=== PATIENT | female | born 1985 | race Hispanic/Latino ===

== ENCOUNTER 2017-01-19 18:09 | Emergency (ER) | payer MEDICARE ==
[2017-01-19 18:21] VITALS: BP 142/86
--- NOTE | 2017-01-19 18:30 | Emergency Department Report ---
Chief Complaint: Upper Respiratory Infection Stated Complaint: SEVERE COUGH FLU LIKE SX Time Seen by Provider: 01/19/17 18:18 - HPI History of Present Illness: pt has multiple complaints uti/ foul smelling urine since May cough exposure to someone vomiting - ROS Review of Systems: + fever + cough + uti symptoms - Exam Vital Signs: Vital Signs 01/19/17 18:19 Temperature 98.8 F Pulse Rate 111 H Respiratory 16 Rate Blood Pressure 142/86 O2 Sat by Pulse 99 Oximetry Physical Exam: dry cough noted no wheezing MSE screening note: Focused history and physical exam performed. Due to findings the following was ordered: lab, xr ED Disposition for MSE Condition: Stable
[2017-01-19] MEDS ORDERED: DECADRON IM ONE (19:28)
[2017-01-19 19:49] LABS: Bilirubin,Urine NEG (Negative); Blood,Urine SM (Negative); Ketones,Urine TR mg/dL (Negative); Leukocyte Esterase,Urine SM (Negative); Mucus,Urine FEW /HPF; Nitrite,Urine NEG (Negative); Protein,Urine <15 mg/dL mg/dL (Negative); Urobilinogen,Urine < 2.0 mg/dL (<2.0)
--- NOTE | 2017-01-19 20:05 | Emergency Department Report ---
- General Chief Complaint: Upper Respiratory Infection Stated Complaint: SEVERE COUGH FLU LIKE SX Time Seen by Provider: 01/19/17 18:18 Source: patient Mode of arrival: Ambulatory Limitations: No Limitations - History of Present Illness Initial Comments: Patient is a 31-year-old female presents to ED with complaints of cough, congestion, shortness of breath for the past few days. Patient also reports that she had been seen at [facility] few days ago and was told she had a UTI. Although was not able to get the prescription for the antibiotics. States unsure if she still has UTI. MD Complaint: cough, nasal congestion Onset/Timin -: week(s) Severity: moderate Severity scale (0 -10): 0 Consistency: intermittent Improves With: nothing Worsens With: nothing Associated Symptoms: denies other symptoms, nasal congestion, cough, shortness of breath. denies: fever, chills, myalgias, diaphoresis, headache, sore throat , chest pain, nausea, vomiting, hoarseness, ear pain - Related Data Previous Rx's Medication Instructions Recorded Last Taken Type Benzonatate [Tessalon Perles] 100 mg PO Q8HR #21 capsule 01/19/17 Unknown Rx predniSONE [Deltasone] 20 mg PO QDAY #10 tab 01/19/17 Unknown Rx Allergies Allergy/AdvReac Type Severity Reaction Status Date / Time promethazine HCl AdvReac Vomiting Verified 01/19/17 18:23 [From Phenergan] Sulfa (Sulfonamide AdvReac Unknown Verified 01/19/17 18:23 Antibiotics) ED Review of Systems ROS: Stated complaint: SEVERE COUGH FLU LIKE SX Other details as noted in HPI Constitutional: denies: chills, fever Eyes: denies: eye pain, eye discharge, vision change ENT: denies: ear pain, throat pain Respiratory: cough, shortness of breath. denies: wheezing Cardiovascular: denies: chest pain, palpitations Genitourinary: dysuria, frequency. denies: urgency, hematuria, discharge, abnormal menses, dyspareunia Neurological: denies: headache, weakness, paresthesias Psychiatric: denies: anxiety, depression ED Past Medical Hx - Past Medical History Previous Medical History?: Yes Hx Diabetes: Yes Hx Psychiatric Treatment: Yes (bipolar) Hx Asthma: Yes Additional medical history: thyroid - Surgical History Past Surgical History?: Yes Additional Surgical History: head, tonsil - Social History Smoking Status: Never Smoker Substance Use Type: None - Medications Home Medications: Home Medications Medication Instructions Recorded Confirmed Last Taken Type Benzonatate [Tessalon Perles] 100 mg PO Q8HR #21 capsule 01/19/17 Unknown Rx predniSONE [Deltasone] 20 mg PO QDAY #10 tab 01/19/17 Unknown Rx ED Physical Exam - General Limitations: No Limitations General appearance: alert, in no apparent distress - Eye Eye exam: Present: normal appearance - ENT ENT exam: Present: mucous membranes moist - Respiratory Respiratory exam: Present: normal lung sounds bilaterally. Absent: respiratory distress, wheezes, rales, rhonchi, stridor, chest wall tenderness - Cardiovascular Cardiovascular Exam: Present: regular rate, normal rhythm. Absent: systolic murmur, diastolic murmur, rubs, gallop - Neurological Exam Neurological exam: Present: alert, oriented X3 - Psychiatric Psychiatric exam: Present: normal affect, normal mood ED Course Vital Signs 01/19/17 18:19 Temperature 98.8 F Pulse Rate 111 H Respiratory 16 Rate Blood Pressure 142/86 O2 Sat by Pulse 99 Oximetry ED Medical Decision Making - Medical Decision Making Patient is resting comfortably in the ED room. UA does not reveal any signs of UTI, +1 calcium oxalate noted. Spoke to patient regarding this and denies any flank pain or suprapubic pain in the ED. Chest x-ray does not reveal any acute findings. We'll give prednisone, Tessalon Perles. advised follow up with Urologist for persistent dysuria. No distress in the Ed room. Patient is reading a book. - Differential Diagnosis URI, bronchitis, pneumonia, sinusitis, postnasal, dysuria. Critical care attestation.: If time is entered above; I have spent that time in minutes in the direct care of this critically ill patient, excluding procedure time. ED Disposition Clinical Impression: URI, acute Disposition: DC-01 TO HOME OR SELFCARE Is pt being admited?: No Does the pt Need Aspirin: No Condition: Stable Instructions: Dysuria (ED), Upper Respiratory Infection (ED) Prescriptions: Benzonatate [Tessalon Perles] 100 mg PO Q8HR #21 capsule predniSONE [Deltasone] 20 mg PO QDAY #10 tab Time of Disposition: 20:10
--- NOTE | 2017-01-20 07:25 | XRay Report ---
ROUTINE CHEST, TWO VIEWS: HISTORY: Cough. The trachea, heart, mediastinal contour, lung hackett and bony thorax are unremarkable. IMPRESSION: Unremarkable chest x-ray.
== END 2017-01-19 20:15 | disposition home or self-care (01) ==
LOC: ED 18:09
DX: J06.9 Acute upper respiratory infection, unspecified (principal); E11.9 Type 2 diabetes mellitus without complications; F31.9 Bipolar disorder, unspecified; J45.909 Unspecified asthma, uncomplicated; Z88.2 Allergy status to sulfonamides; Z88.8 Allergy status to other drugs, medicaments and biological substances
CPT/HCPCS: 71020; 81001; 81025; 96372; 99283; J1100

== ENCOUNTER 2017-01-20 20:12 | Emergency (ER) | payer MEDICARE ==
[2017-01-20 21:23] LABS: Basophils % (Auto) 0.8 % (0.0-1.8); Eosinophils % (Auto) 1.3 % (0.0-4.3); Hematocrit 40.3 % (30.3-42.9); Hemoglobin 13.3 gm/dl (10.1-14.3); Mean Corpuscular HGB Conc 33 % (30-34); Mean Corpuscular Hemoglobin 27 pg (28-32); Mean Corpuscular Volume 82 fl (79-97); Platelet Count 381 K/mm3 (140-440); Red Blood Count 4.91 M/mm3 (3.65-5.03); Red Cell Distribution Width 14.4 % (13.2-15.2); White Blood Count 14.2 K/mm3 (4.5-11.0)
[2017-01-20 21:40] LABS: Anion Gap 25 mmol/L; Blood Urea Nitrogen 8 mg/dL (7-17); Calcium 9.8 mg/dL (8.4-10.2); Carbon Dioxide 19 mmol/L (22-30); Chloride 98.5 mmol/L (98-107); Glucose 166 mg/dL (65-100); Potassium 3.7 mmol/L (3.6-5.0); Sodium 139 mmol/L (137-145)
[2017-01-21] MEDS ORDERED: ZOFRAN IM ONE (06:22)
--- NOTE | 2017-01-21 06:29 | Emergency Department Report ---
- General Chief Complaint: Nausea/Vomiting/Diarrhea Stated Complaint: N/V Time Seen by Provider: 01/21/17 06:06 Source: patient Mode of arrival: Ambulatory Limitations: No Limitations - History of Present Illness Initial Comments: 31 years old female coming in with cough and vomiting for the last 4 days patient was seen here 2 days ago diagnosed with upper respiratory infection. Patient stated that she vomited 3 times since he left the ER. Denied any fever chest pain or abdominal pain. MD Complaint: cough, sore throat, rhinorrhea -: days(s) Associated Symptoms: cough, shortness of breath, nausea, vomiting - Related Data Previous Rx's Medication Instructions Recorded Last Taken Type Benzonatate [Tessalon Perles] 100 mg PO Q8HR #21 capsule 01/19/17 Unknown Rx predniSONE [Deltasone] 20 mg PO QDAY #10 tab 01/19/17 Unknown Rx Amoxicillin [Amoxicillin TAB] 875 mg PO BID #14 tablet 01/21/17 Unknown Rx Ondansetron [Zofran Odt] 4 mg PO Q8HR PRN #14 tab.rapdis 01/21/17 Unknown Rx Allergies Allergy/AdvReac Type Severity Reaction Status Date / Time promethazine HCl AdvReac Vomiting Verified 01/19/17 18:23 [From Phenergan] Sulfa (Sulfonamide AdvReac Unknown Verified 01/19/17 18:23 Antibiotics) ED Review of Systems ROS: Stated complaint: N/V Other details as noted in HPI Comment: All other systems reviewed and negative Constitutional: denies: chills, fever ENT: denies: throat pain Respiratory: cough. denies: shortness of breath Cardiovascular: denies: chest pain Gastrointestinal: nausea, vomiting. denies: abdominal pain, diarrhea ED Past Medical Hx - Past Medical History Previous Medical History?: Yes Hx Diabetes: Yes Hx Psychiatric Treatment: Yes (bipolar) Hx Asthma: Yes Additional medical history: thyroid - Surgical History Past Surgical History?: Yes Additional Surgical History: head, tonsil - Social History Smoking Status: Never Smoker Substance Use Type: None - Medications Home Medications: Home Medications Medication Instructions Recorded Confirmed Last Taken Type Benzonatate [Tessalon Perles] 100 mg PO Q8HR #21 capsule 01/19/17 Unknown Rx predniSONE [Deltasone] 20 mg PO QDAY #10 tab 01/19/17 Unknown Rx Amoxicillin [Amoxicillin TAB] 875 mg PO BID #14 tablet 01/21/17 Unknown Rx Ondansetron [Zofran Odt] 4 mg PO Q8HR PRN #14 tab.rapdis 01/21/17 Unknown Rx ED Physical Exam - General Limitations: No Limitations General appearance: alert - Eye Eye exam: Present: normal appearance - ENT ENT exam: Present: normal exam, normal orophraynx - Neck Neck exam: Present: normal inspection. Absent: tenderness, meningismus, full ROM - Respiratory Respiratory exam: Present: normal lung sounds bilaterally. Absent: respiratory distress, wheezes, rales, rhonchi, stridor, decreased breath sounds, prolonged expiratory - Cardiovascular Cardiovascular Exam: Present: regular rate, normal rhythm, normal heart sounds - GI/Abdominal GI/Abdominal exam: Present: soft. Absent: tenderness, guarding, rebound, rigid - Neurological Exam Neurological exam: Present: alert, oriented X3, CN II-XII intact - Skin Skin exam: Present: warm, normal color ED Course Vital Signs 01/20/17 01/21/17 01/21/17 20:56 01:13 05:32 Temperature 98.6 F 98.4 F Pulse Rate 101 H 112 H Respiratory 22 18 Rate Blood Pressure 139/95 145/88 O2 Sat by Pulse 95 97 96 Oximetry 01/21/17 01/21/17 01/21/17 05:36 05:40 05:45 Temperature Pulse Rate Respiratory Rate Blood Pressure 125/72 125/72 126/78 O2 Sat by Pulse 96 94 98 Oximetry 01/21/17 05:52 Temperature Pulse Rate Respiratory 20 Rate Blood Pressure O2 Sat by Pulse Oximetry - Reevaluation(s) Reevaluation #1: 01/21/17 07:26 Patient is admitted that she is feeling much better no nausea no vomiting will discharge with antibiotic to follow-up with her primary care physician. ED Medical Decision Making - Lab Data Result diagrams: 01/20/17 21:04 01/20/17 21:04 Critical care attestation.: If time is entered above; I have spent that time in minutes in the direct care of this critically ill patient, excluding procedure time. ED Disposition Clinical Impression: Acute bronchitis Disposition: DC-01 TO HOME OR SELFCARE Is pt being admited?: No Condition: Stable Instructions: Acute Bronchitis (ED) Referrals: PRIMARY CARE, [Primary Care Provider] - 3-5 Days
[2017-01-21 08:03] VITALS: BP 127/70
== END 2017-01-21 08:00 | disposition home or self-care (01) ==
LOC: ED 20:12
DX: J20.9 Acute bronchitis, unspecified (principal); E11.9 Type 2 diabetes mellitus without complications; F31.9 Bipolar disorder, unspecified; J45.909 Unspecified asthma, uncomplicated; Z88.2 Allergy status to sulfonamides
CPT/HCPCS: 36415; 80048; 85025; 96372; 99283; J2405

== ENCOUNTER 2017-01-23 01:53 | Emergency (ER) | payer MEDICARE ==
[2017-01-23 02:50] LABS: Hematocrit 36.8 % (30.3-42.9); Hemoglobin 12.1 gm/dl (10.1-14.3); Mean Corpuscular HGB Conc 33 % (30-34); Mean Corpuscular Hemoglobin 27 pg (28-32); Mean Corpuscular Volume 81 fl (79-97); Platelet Count 303 K/mm3 (140-440); Red Blood Count 4.52 M/mm3 (3.65-5.03); Red Cell Distribution Width 14.5 % (13.2-15.2); White Blood Count 10.8 K/mm3 (4.5-11.0)
[2017-01-23 03:05] LABS: Anion Gap 21 mmol/L; Blood Urea Nitrogen 4 mg/dL (7-17); Calcium 8.8 mg/dL (8.4-10.2); Carbon Dioxide 23 mmol/L (22-30); Chloride 95.4 mmol/L (98-107); Glucose 194 mg/dL (65-100); Potassium 3.3 mmol/L (3.6-5.0); Sodium 136 mmol/L (137-145)
--- NOTE | 2017-01-23 04:11 | XRay Report ---
FINAL REPORT EXAM: XR CHEST ROUTINE 2V HISTORY: Chest Congestion, Preg test ordered, Get Report Productive cough with yellow/green sputum x 1 week sore throat TECHNIQUE: PA and lateral chest radiographs PRIORS: None. FINDINGS: No focal consolidations are seen in the lungs and there are no pleural effusions.The cardiomediastinal silhouette is within normal limits for size and contour. No acute osseous abnormality is identified. IMPRESSION: 1. No definite radiographic evidence of acute cardiopulmonary disease. 2. No focal infiltrate is identified.
[2017-01-23] MEDS ORDERED: DUONEB *Not for PRN Use IH ONE (08:05)
[2017-01-23] MEDS ORDERED: TESSALON PERLES PO ONE (08:05)
[2017-01-23] MEDS ORDERED: POTASSIUM CHLORIDE PO ONE ×2 (08:13→09:00)
--- NOTE | 2017-01-23 08:18 | Emergency Department Report ---
ED General Adult HPI - General Chief complaint: Upper Respiratory Infection Stated complaint: REJI/COUGHING MUCUS Time Seen by Provider: 01/23/17 07:55 Source: patient Mode of arrival: Ambulatory Limitations: No Limitations - History of Present Illness Initial comments: PT c/o cough x 1 week. PT also c/o sore throat. PT has been seen here twice for similar symptoms. PT states she only filled 1 RX but does not know which one she is taking. PT states she has a hx of asthma and she is using her inhaler but she is still coughing. Complaint: cough -: Gradual, week(s) (one) Location: mouth (sore throat ) Severity scale (0 -10): 3 Quality: constant Consistency: constant Improves with: none Associated Symptoms: cough. denies: fever/chills, headaches, loss of appetite, nausea/vomiting Treatments Prior to Arrival: none - Related Data Previous Rx's Medication Instructions Recorded Last Taken Type Benzonatate [Tessalon Perles] 100 mg PO Q8HR #21 capsule 01/19/17 Unknown Rx predniSONE [Deltasone] 20 mg PO QDAY #10 tab 01/19/17 Unknown Rx Amoxicillin [Amoxicillin TAB] 875 mg PO BID #14 tablet 01/21/17 Unknown Rx Ondansetron [Zofran Odt] 4 mg PO Q8HR PRN #14 tab.rapdis 01/21/17 Unknown Rx Tobramycin 0.3% [Tobrex] 1 drop OD QID 7 Days 01/23/17 Unknown Rx Allergies Allergy/AdvReac Type Severity Reaction Status Date / Time ketorolac tromethamine Allergy Rash Verified 01/23/17 02:19 [From Toradol] misoprostol Allergy Rash Verified 01/23/17 02:19 promethazine HCl AdvReac Vomiting Verified 01/19/17 18:23 [From Phenergan] Sulfa (Sulfonamide AdvReac Unknown Verified 01/19/17 18:23 Antibiotics) ED Review of Systems ROS: Stated complaint: REJI/COUGHING MUCUS Other details as noted in HPI Comment: All other systems reviewed and negative Constitutional: denies: chills, fever Eyes: eye discharge (R). 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 denies: ear pain Respiratory: cough, wheezing. denies: shortness of breath Cardiovascular: denies: chest pain Gastrointestinal: denies: abdominal pain, nausea, vomiting Genitourinary: denies: abnormal menses Neurological: denies: headache ED Past Medical Hx - Past Medical History Previous Medical History?: Yes Hx Diabetes: Yes Hx Psychiatric Treatment: Yes (bipolar) Hx Asthma: Yes Additional medical history: thyroid - Surgical History Past Surgical History?: Yes Additional Surgical History: head, tonsil - Social History Smoking Status: Never Smoker Substance Use Type: Alcohol - Medications Home Medications: Home Medications Medication Instructions Recorded Confirmed Last Taken Type Benzonatate [Tessalon Perles] 100 mg PO Q8HR #21 capsule 01/19/17 Unknown Rx predniSONE [Deltasone] 20 mg PO QDAY #10 tab 01/19/17 Unknown Rx Amoxicillin [Amoxicillin TAB] 875 mg PO BID #14 tablet 01/21/17 Unknown Rx Ondansetron [Zofran Odt] 4 mg PO Q8HR PRN #14 tab.rapdis 01/21/17 Unknown Rx Tobramycin 0.3% [Tobrex] 1 drop OD QID 7 Days 01/23/17 Unknown Rx ED Physical Exam - General Limitations: No Limitations General appearance: alert, in no apparent distress - Head Head exam: Present: atraumatic, normocephalic, normal inspection - Eye Eye exam: Present: PERRL, EOMI, conjunctival injection (R ), other (Left eye - white pupil ). Absent: normal appearance - ENT ENT exam: Present: normal exam, normal orophraynx, mucous membranes moist, normal external ear exam - Neck Neck exam: Present: normal inspection, full ROM. Absent: tenderness, lymphadenopathy - Respiratory Respiratory exam: Present: normal lung sounds bilaterally, other (dry cough noted during exam ). Absent: respiratory distress, wheezes, rales, rhonchi, stridor, chest wall tenderness - Cardiovascular Cardiovascular Exam: Present: normal rhythm, tachycardia, normal heart sounds - Extremities Exam Extremities exam: Present: normal inspection, full ROM - Back Exam Back exam: Present: normal inspection, full ROM. Absent: tenderness, CVA tenderness (R), CVA tenderness (L), muscle spasm, paraspinal tenderness, vertebral tenderness - Neurological Exam Neurological exam: Present: alert, oriented X3 - Psychiatric Psychiatric exam: Present: normal affect, normal mood - Skin Skin exam: Present: warm, dry, intact, normal color ED Course Vital Signs 01/23/17 01/23/17 01/23/17 02:20 08:28 08:33 Temperature 98.9 F Pulse Rate 103 H Pulse Rate [ 113 H 115 H Posterior Bilateral Throughout] Respiratory 24 Rate Respiratory 18 18 Rate [Posterior Bilateral Throughout] Blood Pressure 104/67 [Right] O2 Sat by Pulse 94 Oximetry 01/23/17 10:30 Temperature 98.7 F Pulse Rate 96 H Pulse Rate [ Posterior Bilateral Throughout] Respiratory 20 Rate Respiratory Rate [Posterior Bilateral Throughout] Blood Pressure 110/62 [Right] O2 Sat by Pulse 97 Oximetry - Reevaluation(s) Reevaluation #1: 01/23/17 09:59 Pt's hypokalemia treated while in ED. PT states she is feeling better sp neb. - Pulse Oximetry Interpretation Digit-Finger Initial Pulse Oximetry Readin Actions Taken: none ED Medical Decision Making - Lab Data Result diagrams: 01/23/17 02:25 01/23/17 02:25 Lab Results 01/23/17 01/23/17 01/23/17 Range/Units 02:25 02:25 02:25 WBC 10.8 (4.5-11.0) K/mm3 RBC 4.52 (3.65-5.03) M/mm3 Hgb 12.1 (10.1-14.3) gm/dl Hct 36.8 (30.3-42.9) % MCV 81 (79-97) fl MCH 27 L (28-32) pg MCHC 33 (30-34) % RDW 14.5 (13.2-15.2) % Plt Count 303 (140-440) K/mm3 Lymph % (Auto) 19.9 (13.4-35.0) % Rogers % (Auto) 7.8 H (0.0-7.3) % Eos % (Auto) 2.0 (0.0-4.3) % Baso % (Auto) 1.0 (0.0-1.8) % Lymph # 2.1 (1.2-5.4) K/mm3 Rogers # 0.8 (0.0-0.8) K/mm3 Eos # 0.2 (0.0-0.4) K/mm3 Baso # 0.1 (0.0-0.1) K/mm3 Seg Neutrophils % 69.3 (40.0-70.0) % Seg Neutrophils # 7.5 (1.8-7.7) K/mm3 Sodium 136 L (137-145) mmol/L Potassium 3.3 L (3.6-5.0) mmol/L Chloride 95.4 L (98-107) mmol/L Carbon Dioxide 23 (22-30) mmol/L Anion Gap 21 mmol/L BUN 4 L (7-17) mg/dL Creatinine 0.4 L (0.7-1.2) mg/dL Estimated GFR > 60 ml/min BUN/Creatinine Ratio 10.00 % Glucose 194 H (65-100) mg/dL Calcium 8.8 (8.4-10.2) mg/dL Troponin T < 0.010 (0.00-0.029) ng/mL HCG, Qual Negative (Negative) - Radiology Data Radiology results: report reviewed CXR - nap - Differential Diagnosis pna, bronchitis, asthma, conjunctivitis Critical Care Time: No Critical care attestation.: If time is entered above; I have spent that time in minutes in the direct care of this critically ill patient, excluding procedure time. ED Disposition Clinical Impression: Hypokalemia, Cough Conjunctivitis, right eye Qualifiers: Conjunctivitis type: acute Acute conjunctivitis type: unspecified Qualified Code(s): H10.31 - Unspecified acute conjunctivitis, right eye Disposition: TO HOME OR SELFCARE Is pt being admited?: No Does the pt Need Aspirin: No Condition: Stable Instructions: Conjunctivitis (ED), Cold Symptoms (ED), Acute Cough (ED) Additional Instructions: Take your previous prescriptions as prescribed Continue using your inhaler as needed warm compresses to R eye at least 4 times a day good hand washing follow up with PCP in 3-5 days Prescriptions: Tobramycin 0.3% [Tobrex] 1 drop OD QID 7 Days Referrals: PRIMARY CAREMD [Primary Care Provider] - 3-5 Days BLESSING QUEEN MD [Staff Physician] - 3-5 Days [facility] [Outside] - 3-5 Days Time of Disposition: 10:02
[2017-01-23] MEDS ORDERED: DUONEB *Not for PRN Use IH NR (08:45)
[2017-01-23] MEDS ORDERED: TESSALON PERLES PO NR (09:00)
[2017-01-23] MEDS ORDERED: ZOFRAN ODT ONE (09:06)
[2017-01-23] MEDS ORDERED: ZOFRAN ODT PO ONE (09:06)
[2017-01-23 10:31] VITALS: BP 110/62
== END 2017-01-23 10:30 | disposition home or self-care (01) ==
LOC: ED 01:53
DX: H10.31 Unspecified acute conjunctivitis, right eye (principal); E87.6 Hypokalemia; E11.9 Type 2 diabetes mellitus without complications; J45.909 Unspecified asthma, uncomplicated
CPT/HCPCS: 36415; 71020; 80048; 84484; 84703; 85025; 87116; 87430; 94640; Q0162

== ENCOUNTER 2017-01-25 20:15 | Emergency (ER) | payer MEDICARE ==
[2017-01-26] MEDS ORDERED: ROBITUSSIN AC PO ONE (01:36)
[2017-01-26] MEDS ORDERED: ROBITUSSIN DM ONE (01:48)
[2017-01-26] MEDS ORDERED: ROBITUSSIN DM PO ONE ×2 (01:50→01:51)
[2017-01-26] MEDS ORDERED: PROVENTIL IH ONE (02:34)
[2017-01-26] MEDS ORDERED: REGLAN PO ONE (02:34)
--- NOTE | 2017-01-26 02:51 | Emergency Department Report ---
HPI - General Chief Complaint: Upper Respiratory Infection Time Seen by Provider: 01/26/17 02:33 - HPI HPI: Patient is a 31-year-old female presents to ED complaining of resolved coughing and some nausea after eating. Patient states she is coughing for the past couple weeks but nausea after eating began about a day ago. Patient states yesterday she had blueberry muffin and vomited shortly after that. Patient says she's been seen a couple times illness treated for an upper respiratory infection not long ago and is currently on antibiotics for about a year upper respiratory infection. She denies fever/abdominal pain/chest pains or shortness of breath ED Past Medical Hx - Past Medical History Previous Medical History?: Yes Hx Diabetes: Yes Hx Psychiatric Treatment: Yes (bipolar) Hx Asthma: Yes Additional medical history: thyroid - Surgical History Past Surgical History?: No Additional Surgical History: head, tonsil - Social History Smoking Status: Never Smoker Substance Use Type: Prescribed - Medications Home Medications: Home Medications Medication Instructions Recorded Confirmed Last Taken Type Benzonatate [Tessalon Perles] 100 mg PO Q8HR #21 capsule 01/19/17 Unknown Rx predniSONE [Deltasone] 20 mg PO QDAY #10 tab 01/19/17 Unknown Rx Amoxicillin [Amoxicillin TAB] 875 mg PO BID #14 tablet 01/21/17 Unknown Rx Tobramycin 0.3% [Tobrex] 1 drop OD QID 7 Days 01/23/17 Unknown Rx ALBUTEROL Inhaler [ProAir HFA 2 puff IH QID PRN #1 pump 01/26/17 Unknown Rx Inhaler] Acetamin/Codeine 120-12Mg/5 ml 5 ml PO TID PRN #80 ml 01/26/17 Unknown Rx [Tylenol/Codeine] Ondansetron [Zofran ODT TAB] 4 mg PO Q8HR PRN #14 tab.rapdis 01/26/17 Unknown Rx ED Review of Systems ROS: Stated complaint: EMESIS/COUGH Other details as noted in HPI Constitutional: denies: chills, fever Eyes: denies: eye pain, eye discharge, vision change ENT: denies: ear pain, throat pain Respiratory: denies: cough, shortness of breath, wheezing Cardiovascular: denies: chest pain, palpitations Endocrine: no symptoms reported Gastrointestinal: denies: abdominal pain, nausea, diarrhea Genitourinary: denies: urgency, dysuria, discharge Musculoskeletal: denies: back pain, joint swelling, arthralgia Skin: denies: rash, lesions Neurological: denies: headache, weakness, paresthesias Psychiatric: denies: anxiety, depression Hematological/Lymphatic: denies: easy bleeding, easy bruising Physical Exam - Physical Exam Vital Signs: Vital Signs 01/25/17 01/25/17 20:34 21:08 Temperature 98.6 F 98.6 F Pulse Rate 110 H 84 Respiratory 20 20 Rate Blood Pressure 132/79 Blood Pressure 128/85 [Left] O2 Sat by Pulse 92 98 Oximetry Physical Exam: GENERAL: Alert and oriented x3, no apparent distress, Normal Gait, atraumatic. HEAD: Head is normocephalic and a-traumatic. EYES: Extra ocular muscles are intact. Pupils are equal, round, and reactive to light and accommodation. EARS: symetrical, atraumatic, non tender, ear canal clear and moderate cerumen, tympanic membrance non inflamed. gross auditory nml bilaterally. NOSE: Nose symetrical, Nontender,Nares appeared normal. MOUTH:Mouth is well hydrated and without lesions. Tonsils nonerythematous or swollen, Uvula midline, Tongue not elevated. Mucous membranes are moist. Posterior pharynx clear, no exudate or lesions. Patent airways. NECK: Supple. Non edematous, No lymphadenopathy or thyromegaly. No C-spine tenderness LUNGS: Symetrical with respiration, No wheezing, no rales or crackles, CTAB. HEART: S1, S2 present, regular rate and rhythm without murmur, no rubs, no gallops. Non tender to palpation ABDOMEN: No organomegaly was noted,Positive bowel sounds, soft, and non- distended. . Nontender to palpation on all Quadrants, NO CVA tenderness. PSYCHIATRIC: Mood is congruent with affect, denies suicidal or homicidal ideations. SKIN: Warm and dry, No lesions, No ulceration or induration present. ED Course Vital Signs 01/25/17 01/25/17 20:34 21:08 Temperature 98.6 F 98.6 F Pulse Rate 110 H 84 Respiratory 20 20 Rate Blood Pressure 132/79 Blood Pressure 128/85 [Left] O2 Sat by Pulse 92 98 Oximetry ED Medical Decision Making - Medical Decision Making 31-year-old female presents with acute bronchitis ED course: Patient received respiratory treatment in ED, Reglan for nausea, Robitussin with codeine for cough and Patient actively coughing throughout ED stay Coughing reduced after a dose of Robitussin and breathing treatment. Patient was able to tolerate some applesauce in the ED Discussed patient is to follow up with GI doctor if nausea persists as well as primary care physician. Vital signs are normalized, patient is in no acute distress. Discussed the patient's symptoms worsen to return to the ED. Critical care attestation.: If time is entered above; I have spent that time in minutes in the direct care of this critically ill patient, excluding procedure time. ED Disposition Clinical Impression: Acute bronchitis Qualifiers: Bronchitis organism: unspecified organism Qualified Code(s): J20.9 - Acute bronchitis, unspecified Disposition: - TO HOME OR SELFCARE Is pt being admited?: No Does the pt Need Aspirin: No Condition: Stable Instructions: Acute Bronchitis (ED) Additional Instructions: Following instructions given and follow-up with primary care physician. Take your medication as prescribed along his symptoms worsen return to ED otherwise follow up with primary care Prescriptions: Acetamin/Codeine 120-12Mg/5 ml [Tylenol/Codeine] 5 ml PO TID PRN #80 ml PRN Reason: Pain ALBUTEROL Inhaler [ProAir HFA Inhaler] 2 puff IH QID PRN #1 pump PRN Reason: Cough Ondansetron [Zofran ODT TAB] 4 mg PO Q8HR PRN #14 tab.rapdis PRN Reason: Nausea And Vomiting Referrals: PRIMARY CARE,MD [Primary Care Provider] - 3-5 Days [facility] [Outside] - 3-5 Days [facility] [Outside] - 3-5 Days [facility] [Outside] - 3-5 Days Forms: Accompanied Note, Work/School Release Form(ED)
[2017-01-26 04:34] VITALS: BP 118/77
== END 2017-01-26 04:33 | disposition home or self-care (01) ==
LOC: ED 20:15
DX: J20.9 Acute bronchitis, unspecified (principal); E11.9 Type 2 diabetes mellitus without complications; J45.909 Unspecified asthma, uncomplicated
CPT/HCPCS: 94640; 99283

== ENCOUNTER 2017-01-27 22:14 | Emergency (ER) | payer MEDICARE ==
[2017-01-28 03:28] VITALS: BP 110/83
--- NOTE | 2017-01-28 03:33 | Emergency Department Report ---
HPI - General Chief Complaint: Earache Time Seen by Provider: 01/28/17 03:28 - HPI HPI: 41-year-old female presents to the ED complaining of right-sided ear pain was taken last for the past 2-3 days. Patient denies decreased hearing, fever, nausea, vomiting, trauma to the ear. ED Past Medical Hx - Past Medical History Previous Medical History?: Yes Hx Diabetes: Yes Hx Psychiatric Treatment: Yes (bipolar) Hx Asthma: Yes Additional medical history: thyroid. Obesity - Surgical History Past Surgical History?: Yes Additional Surgical History: head, tonsil - Social History Smoking Status: Never Smoker Substance Use Type: Prescribed - Medications Home Medications: Home Medications Medication Instructions Recorded Confirmed Last Taken Type Benzonatate [Tessalon Perles] 100 mg PO Q8HR #21 capsule 01/19/17 Unknown Rx predniSONE [Deltasone] 20 mg PO QDAY #10 tab 01/19/17 Unknown Rx Amoxicillin [Amoxicillin TAB] 875 mg PO BID #14 tablet 01/21/17 Unknown Rx Tobramycin 0.3% [Tobrex] 1 drop OD QID 7 Days 01/23/17 Unknown Rx ALBUTEROL Inhaler [ProAir HFA 2 puff IH QID PRN #1 pump 01/26/17 Unknown Rx Inhaler] Acetamin/Codeine 120-12Mg/5 ml 5 ml PO TID PRN #80 ml 01/26/17 Unknown Rx [Tylenol/Codeine] Ondansetron [Zofran ODT TAB] 4 mg PO Q8HR PRN #14 tab.rapdis 01/26/17 Unknown Rx Amoxicillin/K Clav Tab [Augmentin 1 tab PO Q12HR #14 tab 01/28/17 Unknown Rx 875 mg] Ibuprofen [Motrin] 800 mg PO Q8HR PRN #24 tablet 01/28/17 Unknown Rx Pseudoephedrine ER [Sudafed 12 Hr] 120 mg PO BID #30 tablet.er 01/28/17 Unknown Rx ED Review of Systems ROS: Stated complaint: RT EARACHE Other details as noted in HPI Constitutional: denies: chills, fever Eyes: denies: eye pain, eye discharge, vision change ENT: ear pain. denies: throat pain, dental pain, hearing loss, congestion Respiratory: denies: cough, shortness of breath, wheezing Cardiovascular: denies: chest pain, palpitations Endocrine: no symptoms reported Gastrointestinal: denies: abdominal pain, nausea, diarrhea Genitourinary: denies: urgency, dysuria, discharge Musculoskeletal: denies: back pain, joint swelling, arthralgia Skin: denies: rash, lesions Neurological: denies: headache, weakness, paresthesias Psychiatric: denies: anxiety, depression Hematological/Lymphatic: denies: easy bleeding, easy bruising Physical Exam - Physical Exam Vital Signs: Vital Signs 01/27/17 22:18 Temperature 99.4 F Pulse Rate 18 L Respiratory 18 Rate Blood Pressure 123/81 [Right] O2 Sat by Pulse 96 Oximetry Physical Exam: GENERAL: Alert and oriented x3, no apparent distress, Normal Gait, atraumatic. HEAD: Head is normocephalic and a-traumatic. EYES: Extra ocular muscles are intact. Pupils are equal, round, and reactive to light and accommodation. EARS: symetrical, atraumatic, non tender, ear canal clear and moderate cerumen, tympanic membrance non inflamed. Serous fluid behind tympanic membrane of the right, mild serous fluid on the left. gross auditory nml bilaterally. NOSE: Nose symetrical, Nontender,Nares appeared normal. MOUTH:Mouth is well hydrated and without lesions. Tonsils nonerythematous or swollen, Uvula midline, Tongue not elevated. Mucous membranes are moist. Posterior pharynx clear, no exudate or lesions. Patent airways. NECK: Supple. Non edematous, No lymphadenopathy or thyromegaly. No C-spine tenderness LUNGS: Symetrical with respiration, No wheezing, no rales or crackles, CTAB. HEART: S1, S2 present, regular rate and rhythm without murmur, no rubs, no gallops. Non tender to palpation SKIN: Warm and dry, No lesions, No ulceration or induration present. ED Course Vital Signs 01/27/17 22:18 Temperature 99.4 F Pulse Rate 18 L Respiratory 18 Rate Blood Pressure 123/81 [Right] O2 Sat by Pulse 96 Oximetry ED Medical Decision Making - Medical Decision Making 31-year-old female presents with sinusitis with the referring pain to the ears. Discussed the patient take medications prescribed. Discussed patient will follow up with primary care physician in 3 days. Vital signs normal patient is in no acute distress Critical care attestation.: If time is entered above; I have spent that time in minutes in the direct care of this critically ill patient, excluding procedure time. ED Disposition Clinical Impression: Sinusitis Qualifiers: Sinusitis location: maxillary Chronicity: subacute Qualified Code(s): J01.00 - Acute maxillary sinusitis, unspecified Disposition: DC- TO HOME OR SELFCARE Is pt being admited?: No Does the pt Need Aspirin: No Condition: Stable Instructions: Sinusitis (ED), Acute Bacterial Rhinosinusitis (ED) Prescriptions: Amoxicillin/K Clav Tab [Augmentin 875 mg] 1 tab PO Q12HR #14 tab Ibuprofen [Motrin] 800 mg PO Q8HR PRN #24 tablet PRN Reason: Pain Pseudoephedrine ER [Sudafed 12 Hr] 120 mg PO BID #30 tablet.er Referrals: PRIMARY CARE, [Primary Care Provider] - 3-[address] [facility] [Outside] - 3-5 Days [facility] [Outside] - 3-5 Days [facility] [Outside] - 3-5 Days Forms: Work/School Release Form(ED) Time of Disposition: 04:08
== END 2017-01-28 04:27 | disposition home or self-care (01) ==
LOC: ED 22:14
DX: J32.9 Chronic sinusitis, unspecified (principal); E11.9 Type 2 diabetes mellitus without complications; J45.909 Unspecified asthma, uncomplicated
CPT/HCPCS: 99282